=== PATIENT | male | born 1960 ===

== ENCOUNTER 2019-07-29 06:10 | Day surgery (SDC) | payer OTHER | END 2019-07-29 10:05 | disposition home or self-care (01) | LOC: AMB-ENDOS 06:10 → ADM 13:15 → AMB-ENDOS 13:15 | DX: C18.7 Malignant neoplasm of sigmoid colon (principal); K57.30 Diverticulosis of large intestine without perforation or abscess without bleeding ==

== ENCOUNTER 2019-12-12 10:48 | Inpatient (IN) | payer OTHER ==
[~2019-12-12] VITALS: Ht 172.7 cm; Wt 102.1 kg
[2020-01-04] MEDS ORDERED: INTESTINEX680 M1 PO (08:16)
[2020-01-04] MEDS ORDERED: HYOSCYAMINE0.125 M1 SL (08:16)
[2020-01-04] MEDS ORDERED: PERCOCET 5-3251 EACH PO (08:17)
== END 2020-01-04 13:54 | disposition home or self-care (01) | DRG 329 ==
LOC: SURH 01-01 06:45 → O/R 01-01 06:45 → SURH 01-01 09:00
PROVIDERS: ADMIT Surgery
PROC: 07BC3ZX Excision of Pelvis Lymphatic, Percutaneous Approach, Diagnostic (ICD-10-PCS; 2020-01-01)
PROC: 0DJD8ZZ Inspection of Lower Intestinal Tract, Via Natural or Artificial Opening Endoscopic (ICD-10-PCS; 2020-01-01)
PROC: 4A033R1 Measurement of Arterial Saturation, Peripheral, Percutaneous Approach (ICD-10-PCS; 2020-01-01)
PROC: 4A12X4Z Monitoring of Cardiac Electrical Activity, External Approach (ICD-10-PCS; 2020-01-01)
PROC: 5A09457 Assistance with Respiratory Ventilation, 24-96 Consecutive Hours, Continuous Positive Airway Pressure (ICD-10-PCS; 2020-01-01)
PROC: 0DTN4ZZ Resection of Sigmoid Colon, Percutaneous Endoscopic Approach (ICD-10-PCS; principal; 2020-01-01 09:00)
DX: D12.7 Benign neoplasm of rectosigmoid junction (principal); J95.822 Acute and chronic postprocedural respiratory failure; E87.2 Acidosis; R59.0 Localized enlarged lymph nodes; I11.9 Hypertensive heart disease without heart failure; G47.33 Obstructive sleep apnea (adult) (pediatric); E66.01 Morbid (severe) obesity due to excess calories